=== PATIENT | female | born 1930 | race Caucasian/White ===

== ENCOUNTER 2018-05-07 22:08 | Emergency (ER) | payer MEDICARE ==
[~2018-05-07] VITALS: Ht 160 cm; Wt 57.2 kg
--- NOTE | 2018-05-07 23:26 | Diagnostic Imaging Report ---
PELVIS AP 1-2 VIEWS - 3 views HISTORY: Pain COMPARISON: None available. FINDINGS: Limited by generalized demineralization. No definite evidence of acute displaced fracture or dislocation. Vascular stent overlying left sacrum. There are also surgical clips overlying left femoral head. Degenerative changes of SI joints and lower lumbar spine. IMPRESSION: No definite evidence of acute displaced fracture or dislocation. Signed by: Dr. Boo Isaacs MD on 05/07/2018 11:23 PM
--- NOTE | 2018-05-07 23:50 | Diagnostic Imaging Report ---
EXAMINATION: Head CT without contrast. HISTORY:Fall. COMPARISON:None. TECHNIQUE: Multidetector axial images were obtained from the foramen magnum to the vertex without contrast. The images were reconstructed using brain and bone algorithms. Thin section brain images were reformatted into coronal and sagittal planes. Dose modulation, iterative reconstruction, and/or weight based adjustment of the mA/kV was utilized to reduce the radiation dose to as low as reasonably achievable. Intravenous contrast: None IMAGE QUALITY: Acceptable. FINDINGS: Skull/scalp: No lytic or blastic. lesions. No surgical changes. Parenchyma: Nonspecific bilateral frontoparietal patchy white matter hypodensity are likely related to small vessel ischemic changes. Focal hypodensity in posterior and inferior aspect of right lentiform nucleus either represents old lacunar infarct or prominent perivascular space. Focal hypodensity in right frontal periventricular white matter and bilateral thalamocapsular region represents old lacunar infarct. No acute hemorrhage, mass or acute major vascular territorial infarct. Arteries: No density suggestive of thrombosis. Atherosclerotic calcification in bilateral carotid siphon. Dural sinuses: No abnormal density suggestive of thrombosis. Ventricles: Moderate compensated dilatation due to volume loss. No acute hydrocephalus. Extra-axial spaces: No abnormal density. Brain volume: Generalized age-related cerebral volume loss. Craniocervical junction: No mass, Chiari malformation, or basilar invagination. Sella: No mass. Paranasal/mastoid sinuses: Imaged portions unremarkable. IMPRESSION: 1. No acute posttraumatic intracranial abnormality. 2. Mild supratentorial white matter microvascular ischemic changes. 3. 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 Old lacunar infarct versus prominent perivascular space in right putamen. 4. Generalized age-related cerebral volume loss. Signed by: Dr. Cristina Clarke M.D. on 05/07/2018 11:46 PM
--- NOTE | 2018-05-07 23:57 | Diagnostic Imaging Report ---
History: Fall. Comparison studies: None Technique: Axial images were obtained through the cervical region.. Coronal and sagittal images reconstructed from the axial data. Dose modulation, iterative reconstruction, and/or weight based adjustment of the mA/kV was utilized to reduce the radiation dose to as low as reasonably achievable. Intravenous contrast: None Findings: Suboptimal evaluation as the anterior aspect of vertebral bodies from level C2-C7 is not in the [id number]. Fractures: Suboptimal evaluation due to patient position and technique, despite the limitation no grossly displaced acute fracture. Soft tissue injuries: None. Atlantoaxial articulation: Intact. Alignment: Mild exaggeration of cervical lordosis may be positional. No scoliosis. Cervicomedullary junction: No abnormalities. The foramen magnum is patent. Soft tissues: No abnormalities. Vertebrae: No fractures, infection or neoplasm. Degenerative changes: Mild degenerative disc disease at C5-C6. No canal stenosis. Mild right foraminal stenosis at C5-C6 due to facet and uncovertebral arthrosis. IMPRESSION: 1. Suboptimal evaluation due to patient position and technique, despite the limitation no acute fracture in the visualized portion of the cervical spine. 2. Ligament, spinal cord and or vascular abnormalities cannot be excluded on the basis of this examination. Signed by: Dr. Cristina Clarke M.D. on 05/07/2018 11:53 PM
--- NOTE | 2018-05-08 00:08 | Diagnostic Imaging Report ---
History: Fall. Comparison studies: Report of MRI lumbar spine from 10/18/2009, images are not available for comparison at the time of interpretation. Technique: Axial images were obtained through the lumbar spine from T12-S1. Coronal and sagittal images reconstructed from the axial data. Dose modulation, iterative reconstruction, and/or weight based adjustment of the mA/kV was utilized to reduce the radiation dose to as low as reasonably achievable. Intravenous contrast: None Findings: There are 4 nonrib-bearing lumbar type vertebral bodies are present, with sacralization of L5 vertebral body. Alignment: Normal lordosis. No scoliosis. Soft tissues: Atherosclerotic calcification and abdominal aortic aneurysm (approximately measures 4.7 cm in maximum dimension, with a vascular stent in left iliac artery. Paraspinal muscles: Atrophy of paraspinal muscles from level L3-S1. Sacroiliac joints: Mild bilateral degenerative changes. Vertebrae: No fractures, infection or neoplasm. Degenerative changes: L1-L2: No abnormalities. L2-L3: No abnormalities. L3-L4: Mild bilateral facet arthrosis. No canal or foraminal stenosis. L4-L5: Severe bilateral facet arthrosis. No canal or foraminal stenosis. L5-S1: No abnormalities. IMPRESSION: 1. No acute lumbar spine abnormality. 2. 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 3. Severe bilateral facet arthrosis at L4-L5. No canal or foraminal stenosis. 4. Ligament, spinal cord and or vascular abnormalities cannot be excluded on the basis of this examination. Signed by: Dr. Cristina Clarke M.D. on 05/08/2018 12:05 AM
[2018-05-08] MEDS ORDERED: HALOPERIDOL LACTATE 5 MG/ML VIAL IM ONE (00:15)
== END 2018-05-08 01:09 | disposition home or self-care (01) ==
LOC: ER 22:08
DX: S00.83XA Contusion of other part of head, initial encounter (principal); S39.012A Strain of muscle, fascia and tendon of lower back, initial encounter; W18.30XA Fall on same level, unspecified, initial encounter; Y92.128 Other place in nursing home as the place of occurrence of the external cause; F03.90 Unspecified dementia, unspecified severity, without behavioral disturbance, psychotic disturbance, mood disturbance, and anxiety; J44.9 Chronic obstructive pulmonary disease, unspecified; E03.9 Hypothyroidism, unspecified; F41.9 Anxiety disorder, unspecified
CPT/HCPCS: 70450; 72125; 72131; 72170; 99283; J1630